=== PATIENT | female | born 1990 | race Hispanic/Latino ===

== ENCOUNTER 2021-04-07 11:57 | Outpatient (CLI) | payer OTHER ==
[2021-04-08 11:36] LABS: SARS-CoV-2 PCR by NAA Not Detected (NotDetected)
== END 2021-04-07 11:58 | disposition home or self-care (01) ==
LOC: CSHLAB 11:57
PROVIDERS: ATTEND Family Medicine
DX: Z20.822 Contact with and (suspected) exposure to COVID-19 (principal)
CPT/HCPCS: U0003; U0005

== ENCOUNTER 2021-04-10 08:51 | Inpatient (IN) | payer MEDICAID, OTHER, SELFPAY ==
[~2021-04-10 08:51] MED LIST: Bupivacaine 0.25% HCL 30 ML VIAL ONE; Lidocaine 1% PF 5 ML VIAL ONE
[2021-04-10] MEDS: Lactated Ringer's 1,000 ML IV SCH ×2 (09:25→11:40)
[2021-04-10 09:43] VITALS: BMI 28.1
[2021-04-10] MEDS ORDERED: Promethazine HCl 25 MG/ML VIAL IM PRN ×2 (09:46→23:48)
[2021-04-10] MEDS ORDERED: hydrALAZINE 20 MG/ML VIAL SLOW IVP PRN (09:46)
[2021-04-10] MEDS ORDERED: Lidocaine 1% (PF) 30 ML VIAL SC PRN (09:46)
[2021-04-10] MEDS ORDERED: Carboprost 250 MCG/ML AMP IM PRN (09:46)
[2021-04-10] MEDS ORDERED: Butorphanol Tartrate 1 MG/ML VIAL SLOW IVP PRN (09:46)
[2021-04-10] MEDS ORDERED: Diphenoxylate HCl/Atropine Tablet PO PRN ×2 (09:46)
[2021-04-10] MEDS ORDERED: Ibuprofen 800 MG TAB PO PRN (09:46)
[2021-04-10] MEDS ORDERED: Misoprostol 200 MCG TAB PR PRN (09:46)
[2021-04-10] MEDS ORDERED: HYDROcodone/Acetaminophen 5/325 mg Tablet PO PRN ×2 (09:46)
[2021-04-10] MEDS ORDERED: Ondansetron PF 4 MG/2 ML Vial IVP PRN ×2 (09:46→23:48)
[2021-04-10] MEDS ORDERED: Acetaminophen 500 MG TAB PO PRN (09:46)
[2021-04-10] MEDS ORDERED: NS w/ Oxytocin 30 units 500 ML IV SCH (10:00)
[2021-04-10 10:02] LABS: Hemoglobin 12.7 g/dL (12.0-15.5); Mean Corpuscular HGB CONC 33.9 g/dL (32.0-36.0); Mean Corpuscular Volume 94.5 fl (81.6-98.3); Mean Platelet Volume 12.2 fl (7.4-10.4); Platelet Count 148 10x3/uL (150-450); RBC Distribution Width 12.6 % (11.5-14.5); Red Blood Cell (RBC) Count 3.97 10x6/uL (3.90-5.03); White Blood Cell (WBC) Count 8.9 10x3/uL (3.5-10.5)
[2021-04-10 10:12] LABS: ALT (SGPT) 42 U/L (8-55); AST (SGOT) 35 U/L (5-34); Albumin 3.3 g/dL (3.5-5.0); Alkaline Phosphatase 206 U/L (40-110); Anion Gap 13 mmol/L (10-20); BUN (Urea Nitrogen) 5 mg/dL (7.0-18.7); Bilirubin, Total 0.3 mg/dL (0.2-1.2); Calc. Creatinine Clearance 149 mL/min (70-130); Calcium 8.3 mg/dL (7.8-10.44); Carbon Dioxide 19 mmol/L (22-29); Chloride 109 mmol/L (98-107); Globulin 2.7 g/dL (2.4-3.5); Glucose 81 mg/dL (70-105); Potassium 4.1 mmol/L (3.5-5.1); Sodium 137 mmol/L (136-145)
[2021-04-10 10:30] LABS: HBSAg Index 0.18 S/CO (0-0.99); Hep B Surf Ag Non-Reactive S/CO (NonReactive); Syphilis Antibody Nonreactive (Nonreactive); Syphilis Antibody Index 0.03 S/CO (<1.00 Non-Reactive)
[2021-04-10 11:29] LABS: Bilirubin Neg (Negative); Blood, Urine 10 (Negative); Clarity Clear (Clear); Glucose, Urine (Dipstick) Normal (Negative); Ketone, Urine Negative (Negative); Leukocyte Negative (Negative); Nitrite Negative (Negative); Protein, Urine (Dipstick) 100 mg/dl (Neg-Trace); Urobilinogen Normal mg/dL (Less than 2)
[2021-04-10 11:39] LABS: Urine Culture Reflex No No
[2021-04-10 11:41] LABS: Bacteria/HPF Rare-Few HPF (None Seen); Squamous Epithelial None Seen HPF (0-3); Transitional Epithelial 0-3 HPF (None Seen); WBC/HPF 0-3 HPF (0-3)
[2021-04-10 11:54] LABS: Creatinine, Urine 79.31 mg/dL (47-110)
[2021-04-10] MEDS: Misoprostol 100 MCG TAB VAG SCH (14:35)
[2021-04-10] MEDS ORDERED: Magnesium Sulfate 20 gm/500 ml 20 GM/500 ML BAG ONE (16:38)
[2021-04-10] MEDS ORDERED: Calcium Gluc 4.6 MEQ/10 ML (100 MG/ML) SLOW IVP PRN (16:42)
[2021-04-10] MEDS ORDERED: Magnesium Sulfate 20 gm/500 ml 20 GM/500 ML BAG IVPB SCH (16:45)
[2021-04-10] MEDS ORDERED: Magnesium Sulfate 20 gm/500 ml 4 GM/100 ML BAG IVPB SCH (16:45)
[2021-04-10] MEDS ORDERED: Fentanyl 2 mcg/Bup 0.1% Cadd 100 ML ONE (23:03)
[2021-04-10] MEDS ORDERED: Fentanyl 2 mcg/Bupivacaine 0.1% Cassette 100 ML EPIDURAL SCH (23:45)
[2021-04-10] MEDS ORDERED: Communication Order-Pharmacy FS SCH (23:45)
[2021-04-10] MEDS ORDERED: diphenhydrAMINE 50 MG/ML VIAL IVP PRN (23:48)
[2021-04-10] MEDS ORDERED: ePHEDrine Sulfate 50 MG/10 ML VIAL SLOW IVP PRN (23:48)
[2021-04-10] MEDS ORDERED: Hydrocerin (Eucerin) Cream 120 gm Jar TOP PRN (23:48)
[2021-04-10] MEDS ORDERED: Lactated Ringer's 500 ML IV PRN (23:48)
[2021-04-10] MEDS ORDERED: Naloxone HCl 0.4 mg/ml Vial IVP PRN ×2 (23:48)
[2021-04-10] MEDS ORDERED: Acetaminophen 325 MG TAB PO PRN (23:48)
[2021-04-11] MEDS ORDERED: Phenylephrine 10 MG/ML VIAL ONE (01:35)
[2021-04-11] MEDS ORDERED: Oxytocin 10 UNITS/ML VIAL ONE (01:35)
[2021-04-11] MEDS ORDERED: PHENYLEPHRINE-NS 100 MCG/ML 10 ML SYRINGE ONE (01:35)
[2021-04-11] MEDS ORDERED: Fentanyl 100 MCG/2 ML VIAL ONE ×2 (02:01→02:13)
[2021-04-11] MEDS ORDERED: Midazolam HCl 2 mg/2 ml Vial ONE (02:01)
[2021-04-11] MEDS ORDERED: Naloxone HCl 0.4 mg/ml Vial IV PRN (02:02)
[2021-04-11] MEDS ORDERED: Naloxone HCl 0.4 mg/ml Vial IVP PRN ×2 (02:02)
[2021-04-11] MEDS ORDERED: Hydrocerin (Eucerin) Cream 120 gm Jar TOP PRN (02:02)
[2021-04-11] MEDS ORDERED: Promethazine HCl 25 MG SUPP PR PRN (02:02)
[2021-04-11] MEDS ORDERED: Promethazine HCl 25 MG/ML VIAL IM PRN ×2 (02:02→06:04)
[2021-04-11] MEDS ORDERED: diphenhydrAMINE 50 MG/ML VIAL IVP PRN (02:02)
[2021-04-11] MEDS ORDERED: Ondansetron PF 4 MG/2 ML Vial IVP PRN ×2 (02:02→06:04)
[2021-04-11] MEDS ORDERED: Ketorolac Tromethamine 30 MG/ML VIAL IVP PRN (02:02)
[2021-04-11] MEDS ORDERED: Meperidine HCl/PF 25 MG/ML VIAL SLOW IVP PRN (02:03)
[2021-04-11] MEDS ORDERED: Fentanyl 100 MCG/2 ML VIAL SLOW IVP PRN (02:03)
[2021-04-11] MEDS ORDERED: Ondansetron HCl/PF 4 MG/2 ML Vial IVP PRN (02:03)
[2021-04-11] MEDS ORDERED: Morphine PF 10 MG/10 ML VIAL ONE (02:07)
[2021-04-11] MEDS ORDERED: Communication Order-Pharmacy FS SCH (02:15)
[2021-04-11] MEDS ORDERED: Ketorolac Tromethamine 30 MG/ML VIAL IVP SCH (02:15)
[2021-04-11] MEDS ORDERED: Meperidine HCl/PF 25 MG/ML VIAL IM PRN (06:04)
[2021-04-11] MEDS ORDERED: hydrALAZINE 20 MG/ML VIAL SLOW IVP PRN (06:04)
[2021-04-11] MEDS ORDERED: Boostrix 0.5 ML (Tdap) VIAL IM ONE (06:04)
[2021-04-11] MEDS ORDERED: Bisacodyl 10 MG SUPP PR PRN (06:04)
[2021-04-11] MEDS ORDERED: diphenhydrAMINE 25 MG CAP PO PRN (06:04)
[2021-04-11] MEDS ORDERED: Simethicone Chewable 80 MG TAB PO PRN (06:04)
[2021-04-11] MEDS ORDERED: NS w/ Oxytocin 30 units 500 ML IV SCH (06:15)
[2021-04-11] MEDS: Ketorolac Tromethamine 30 MG/ML VIAL IVP SCH ×3 (12:07→19:00)
[2021-04-11] MEDS: Lactated Ringer's 1,000 ML IV SCH (12:07)
[2021-04-11] MEDS: Docusate 100 MG CAP PO SCH ×2 (14:45→21:39)
[2021-04-11] MEDS: Ferrous Sulfate 325 MG TAB PO SCH (14:45)
[2021-04-11 14:46] LABS: RapidComm Collect By CBN; pH (Cord, venous) 7.287 (7.250-7.350)
[2021-04-12] MEDS: Ketorolac Tromethamine 30 MG/ML VIAL IVP SCH (01:14)
[2021-04-12] MEDS: HYDROcodone/Acetaminophen 5/325 mg Tablet PO PRN ×3 (03:23→20:05)
[2021-04-12] MEDS: Ibuprofen 800 MG TAB PO SCH ×3 (04:26→21:21)
[2021-04-12 06:34] LABS: Hemoglobin 10.2 g/dL (12.0-15.5); Mean Corpuscular HGB CONC 33.6 g/dL (32.0-36.0); Mean Corpuscular Hemoglobin 31.8 pg (27.0-33.0); Mean Corpuscular Volume 94.7 fl (81.6-98.3); Mean Platelet Volume 11.8 fl (7.4-10.4); Platelet Count 117 10x3/uL (150-450); Red Blood Cell (RBC) Count 3.21 10x6/uL (3.90-5.03); White Blood Cell (WBC) Count 8.9 10x3/uL (3.5-10.5)
[2021-04-12] MEDS: Prenatal Vitamin 1 TAB PO SCH ×2 (07:34→10:31)
[2021-04-12] MEDS: Ferrous Sulfate 325 MG TAB PO SCH ×3 (07:34→15:25)
[2021-04-12] MEDS: Misoprostol 100 MCG TAB VAG SCH (07:44)
[2021-04-12] MEDS: Lactated Ringer's 1,000 ML IV SCH (07:44)
[2021-04-12] MEDS ORDERED: cloNIDine 0.1 MG TAB PO PRN (09:34)
[2021-04-12] MEDS ORDERED: Hydrochlorothiazide 25 MG TAB PO SCH (10:00)
[2021-04-12] MEDS ORDERED: Losartan 25 MG TAB PO SCH (10:00)
[2021-04-12] MEDS: Docusate 100 MG CAP PO SCH ×2 (10:31→21:22)
[2021-04-13] MEDS: Ibuprofen 800 MG TAB PO SCH ×3 (04:38→21:23)
[2021-04-13] MEDS: HYDROcodone/Acetaminophen 5/325 mg Tablet PO PRN ×2 (04:38→16:33)
[2021-04-13] MEDS: Ferrous Sulfate 325 MG TAB PO SCH ×2 (07:31→16:24)
[2021-04-13] MEDS ORDERED: Hydrochlorothiazide 25 MG TAB PO SCH (09:00)
[2021-04-13] MEDS ORDERED: Losartan 25 MG TAB PO SCH (09:00)
[2021-04-13] MEDS: Prenatal Vitamin 1 TAB PO SCH (09:46)
[2021-04-13] MEDS: Docusate 100 MG CAP PO SCH ×2 (09:49→21:23)
[2021-04-14] MEDS: Ibuprofen 800 MG TAB PO SCH ×2 (05:29→13:58)
[2021-04-14] MEDS: HYDROcodone/Acetaminophen 5/325 mg Tablet PO PRN ×2 (05:30→09:14)
[2021-04-14] MEDS: Ferrous Sulfate 325 MG TAB PO SCH (08:30)
[2021-04-14] MEDS ORDERED: Losartan Potassium 50 MG TAB PO SCH (09:00)
[2021-04-14] MEDS ORDERED: Hydrochlorothiazide 25 MG TAB PO SCH (09:00)
[2021-04-14] MEDS: Docusate 100 MG CAP PO SCH (09:10)
[2021-04-14] MEDS: Prenatal Vitamin 1 TAB PO SCH (09:10)
[2021-04-14 11:56] VITALS: BP 127/87; TEMP 97.4
== END 2021-04-14 15:40 | disposition home or self-care (01) | DRG 788 ==
LOC: CSHLD/OP 08:51 → CSHLD 12:18 → CSHPP 04-12 02:00
PROVIDERS: ADMIT Family Medicine; ATTEND Family Medicine
PROC: 10D00Z1 Extraction of Products of Conception, Low, Open Approach (ICD-10-PCS; principal; 2021-04-11)
DX: O48.0 Post-term pregnancy (principal); Z3A.40 40 weeks gestation of pregnancy; Z37.0 Single live birth; O76 Abnormality in fetal heart rate and rhythm complicating labor and delivery; O14.94 Unspecified pre-eclampsia, complicating childbirth; O77.0 Labor and delivery complicated by meconium in amniotic fluid; N80.0 Endometriosis of uterus; O99.892 Other specified diseases and conditions complicating childbirth
CPT/HCPCS: 36415; 51701; 51702; 80053; 81001; 82570; 82805; 84156; 85027; 86780; 86850; 86900; 86901; 87340; 88307; 99285; J0595; J1885; J2250; J2274; J2370; J2405; J2590; J3010; J3475; J7120; S0020

== ENCOUNTER 2022-07-31 04:55 | Inpatient (IN) | payer MEDICAID, OTHER ==
[2022-07-31 05:39] VITALS: BMI 30.5
[2022-07-31] MEDS ORDERED: Carboprost 250 MCG/ML AMP IM PRN (06:52)
[2022-07-31] MEDS ORDERED: Promethazine HCl 25 MG/ML VIAL IM PRN ×3 (06:52→10:17)
[2022-07-31] MEDS ORDERED: Famotidine/PF 20 mg/2ml Vial SLOW IVP PRN (06:52)
[2022-07-31] MEDS ORDERED: Ondansetron PF 4 MG/2 ML Vial IVP PRN ×3 (06:52→10:17)
[2022-07-31] MEDS ORDERED: Tranexamic Acid 1,000 MG/10 ML VIAL IVP PRN (06:52)
[2022-07-31] MEDS ORDERED: Diphenoxylate HCl/Atropine Tablet PO PRN (06:52)
[2022-07-31] MEDS ORDERED: hydrALAZINE 20 MG/ML VIAL SLOW IVP PRN ×2 (06:52→10:17)
[2022-07-31] MEDS ORDERED: NS w/ Oxytocin 30 units 500 ML IV SCH (06:52)
[2022-07-31] MEDS ORDERED: Bicitra 30 ML UDCUP PO PRN (06:52)
[2022-07-31] MEDS ORDERED: Methylergonovine 0.2 MG/ML VIAL IM PRN (06:52)
[2022-07-31] MEDS ORDERED: Lactated Ringer's 1,000 ML IV SCH (06:52)
[2022-07-31] MEDS ORDERED: CEFAZOLIN 2 GM in Sodium Chloride 0.9% 100 ML IVPB SCH (06:52)
[2022-07-31] MEDS ORDERED: Misoprostol 200 MCG TAB PR PRN (06:52)
[2022-07-31] MEDS ORDERED: Oxytocin 10 UNITS/ML VIAL ONE (06:56)
[2022-07-31] MEDS ORDERED: Ondansetron PF 4 MG/2 ML Vial ONE (06:56)
[2022-07-31] MEDS ORDERED: Fentanyl 100 MCG/2 ML VIAL ONE (06:56)
[2022-07-31] MEDS ORDERED: Morphine PF 10 MG/10 ML VIAL ONE (06:56)
[2022-07-31] MEDS ORDERED: Dexamethasone 4 mg/ml Vial ONE (06:56)
[2022-07-31] MEDS ORDERED: Phenylephrine 10 MG/ML VIAL ONE (06:56)
[2022-07-31] MEDS ORDERED: Fentanyl 100 MCG/2 ML VIAL SLOW IVP PRN (07:07)
[2022-07-31] MEDS ORDERED: Moisturizing Cream (Eucerin) 113 GM JAR TOP PRN (07:07)
[2022-07-31] MEDS ORDERED: Promethazine HCl 25 MG SUPP PR PRN (07:07)
[2022-07-31] MEDS ORDERED: diphenhydrAMINE 50 MG/ML VIAL IVP PRN (07:07)
[2022-07-31] MEDS ORDERED: Naloxone HCl 0.4 mg/ml Vial IV PRN (07:07)
[2022-07-31] MEDS ORDERED: Meperidine HCl/PF 25 MG/ML VIAL SLOW IVP PRN (07:07)
[2022-07-31] MEDS ORDERED: Ketorolac Tromethamine 30 MG/ML VIAL IVP PRN (07:07)
[2022-07-31] MEDS ORDERED: HYDROmorphone 2 MG/ML VIAL SLOW IVP PRN (07:07)
[2022-07-31] MEDS ORDERED: Ondansetron HCl/PF 4 MG/2 ML Vial IVP PRN (07:07)
[2022-07-31] MEDS ORDERED: Naloxone HCl 0.4 mg/ml Vial IVP PRN ×2 (07:07)
[2022-07-31 07:10] LABS: Hemoglobin 11.1 g/dL (12.0-15.5); Mean Corpuscular HGB CONC 33.3 g/dL (32.0-36.0); Mean Corpuscular Hemoglobin 31.3 pg (27.0-33.0); Mean Corpuscular Volume 93.8 fl (81.6-98.3); Mean Platelet Volume 11.3 fl (7.4-10.4); Platelet Count 183 10x3/uL (150-450); RBC Distribution Width 13.6 % (11.5-14.5); Red Blood Cell (RBC) Count 3.55 10x6/uL (3.90-5.03); White Blood Cell (WBC) Count 6.7 10x3/uL (3.5-10.5)
[2022-07-31] MEDS ORDERED: Ketorolac Tromethamine 30 MG/ML VIAL IVP SCH (07:15)
[2022-07-31] MEDS ORDERED: Communication Order-Pharmacy FS SCH (07:15)
[2022-07-31 07:52] LABS: Syphilis Antibody Nonreactive (Nonreactive); Syphilis Antibody Index 0.05 S/CO (<1.00 Non-Reactive)
[2022-07-31 07:53] LABS: HBSAg Index 0.19 S/CO (0-0.99); Hep B Surf Ag - L&D Non-Reactive S/CO (NonReactive)
[2022-07-31] MEDS ORDERED: Meperidine HCl/PF 25 MG/ML VIAL IM PRN (10:17)
[2022-07-31] MEDS ORDERED: Boostrix 0.5 ML (Tdap) VIAL (>/=7 yrs of age) IM ONE (10:17)
[2022-07-31] MEDS ORDERED: Simethicone Chewable 80 MG TAB PO PRN (10:17)
[2022-07-31] MEDS ORDERED: Lanolin Ointment 7 GM TUBE TOP PRN (10:17)
[2022-07-31] MEDS ORDERED: diphenhydrAMINE 25 MG CAP PO PRN (10:17)
[2022-07-31] MEDS ORDERED: Bisacodyl 10 MG SUPP PR PRN (10:17)
[2022-07-31] MEDS ORDERED: HYDROcodone/Acetaminophen 5/325 mg Tablet PO PRN (10:17)
[2022-07-31] MEDS ORDERED: Prenatal Vitamin 1 TAB PO SCH (10:30)
[2022-07-31] MEDS ORDERED: Docusate 100 MG CAP PO SCH (10:30)
[2022-07-31] MEDS ORDERED: Ferrous Sulfate 325 MG TAB PO SCH (10:30)
[2022-07-31] MEDS: Ketorolac Tromethamine 30 MG/ML VIAL IVP SCH ×2 (12:13→18:13)
[2022-07-31] MEDS: Ferrous Sulfate 325 MG TAB PO SCH ×2 (20:56→21:02)
[2022-07-31] MEDS: Docusate 100 MG CAP PO SCH (21:04)
[2022-08-01] MEDS: Ketorolac Tromethamine 30 MG/ML VIAL IVP SCH (00:12)
[2022-08-01 04:27] LABS: Hemoglobin 10.8 g/dL (12.0-15.5); Mean Corpuscular HGB CONC 33.4 g/dL (32.0-36.0); Mean Corpuscular Hemoglobin 31.6 pg (27.0-33.0); Mean Corpuscular Volume 94.4 fl (81.6-98.3); Mean Platelet Volume 10.9 fl (7.4-10.4); Platelet Count 169 10x3/uL (150-450); RBC Distribution Width 13.3 % (11.5-14.5); Red Blood Cell (RBC) Count 3.42 10x6/uL (3.90-5.03); White Blood Cell (WBC) Count 11.6 10x3/uL (3.5-10.5)
[2022-08-01] MEDS: Ibuprofen 800 MG TAB PO SCH ×3 (05:51→21:11)
[2022-08-01] MEDS: Ferrous Sulfate 325 MG TAB PO SCH (08:39)
[2022-08-01] MEDS: Docusate 100 MG CAP PO SCH ×2 (08:41→21:11)
[2022-08-01] MEDS: Prenatal Vitamin 1 TAB PO SCH (08:42)
[2022-08-01] MEDS: HYDROcodone/Acetaminophen 5/325 mg Tablet PO PRN ×2 (09:49→21:10)
[2022-08-01] MEDS: Mupirocin 2% Ointment 22 GM Tube TOP SCH ×2 (14:19→21:14)
[2022-08-02] MEDS: Ferrous Sulfate 325 MG TAB PO SCH (11:08)
[2022-08-02] MEDS: Docusate 100 MG CAP PO SCH ×2 (11:11→21:03)
[2022-08-02] MEDS: Prenatal Vitamin 1 TAB PO SCH (11:11)
[2022-08-02] MEDS: Ibuprofen 800 MG TAB PO SCH ×2 (14:13→21:08)
[2022-08-02] MEDS: Mupirocin 2% Ointment 22 GM Tube TOP SCH ×2 (14:14→22:05)
[2022-08-03] MEDS: Ferrous Sulfate 325 MG TAB PO SCH ×2 (03:36→07:44)
[2022-08-03] MEDS: Ibuprofen 800 MG TAB PO SCH ×2 (05:45→07:44)
[2022-08-03] MEDS: Mupirocin 2% Ointment 22 GM Tube TOP SCH ×2 (07:44→09:39)
[2022-08-03 08:08] VITALS: BP 127/80; TEMP 98.2
[2022-08-03] MEDS: Docusate 100 MG CAP PO SCH (09:39)
[2022-08-03] MEDS: Prenatal Vitamin 1 TAB PO SCH (09:39)
[2022-08-03] MEDS: HYDROcodone/Acetaminophen 5/325 mg Tablet PO PRN (11:29)
== END 2022-08-03 12:40 | disposition home or self-care (01) | DRG 788 ==
LOC: CSHLD 04:55 → CSHPP 10:33
PROVIDERS: ADMIT Family Medicine; ATTEND Family Medicine
PROC: 10D00Z1 Extraction of Products of Conception, Low, Open Approach (ICD-10-PCS; principal; 2022-07-31)
DX: O34.211 Maternal care for low transverse scar from previous cesarean delivery (principal); Z3A.39 39 weeks gestation of pregnancy; Z37.0 Single live birth
CPT/HCPCS: 36415; 51702; 85027; 86780; 86850; 86900; 86901; 87340; J1100; J1885; J2274; J2370; J2405; J2590; J3010